=== PATIENT | male | born 1950 | race Caucasian/White ===

== ENCOUNTER 2017-02-26 12:52 | Outpatient (RCR) | payer MEDICARE, OTHER ==
[~2017-02-26 12:52] MED LIST: AMOX500T10 PO; BUTA1TAB14 PO; LEVO-3 PO; LOSA25TA50 PO; SIMV-49 PO
[2017-02-26 13:19] LABS: PLATELET COUNT, AUTOMATED 246 K/uL (150-450)
[2017-02-26 13:31] LABS: INR 2.25
[2017-02-27] MEDS ORDERED: BARIUM SULFATE 176 GM BTL PO ONE (11:14)
[2017-02-27] MEDS ORDERED: BARIUM SULFATE 340 GM POWD ONE (11:14)
--- NOTE | 2017-02-27 17:16 | RADIOLOGY IMAGING REPORT ---
FACILITY: [facility] [place] PATIENT NAME: Ty Dozier : 1950 MR: [id number] V: [id number] EXAM DATE: ORDERING PHYSICIAN: BRITTANI HUFFMAN TECHNOLOGIST: Location: [facility] [place] Patient: Ty Dozier : 1950 Visit/Account:[id number] Date of Sevice: 02/27/2017 Exam type: UPPER GI SERIES W/O AIR History: GERD Comparison: None. Findings: Double contrast upper GI series was performed with thick and thin barium. The patient had a small hi atal hernia with a large amount of gastroesophageal reflux. No significant narrowing was identified within the esophagus. No mucosal erosions were seen. No other abnormality of the stomach duodenal b ulb or duodenal C-loop was identified the fluoroscopy dose area product was 1196.35 micro-Mercedes per me ter squared IMPRESSION: 1. Small hiatal hernia with a large amount of gastroesophageal reflux although no significant narrow ing of the esophagus or mucosal erosion identified Report Dictated By: Lena Griffith MD at 02/27/2017 5:09 PM Report E-Signed By: Lena Griffith MD at 02/27/2017 5:11 PM WSN:[id number]
== END 2017-02-27 18:00 | disposition home or self-care (01) ==
LOC: RAD 12:52
PROVIDERS: ATTEND Family Medicine
DX: K21.9 Gastro-esophageal reflux disease without esophagitis (principal); I67.6 Nonpyogenic thrombosis of intracranial venous system; Z79.01 Long term (current) use of anticoagulants; K44.9 Diaphragmatic hernia without obstruction or gangrene; D64.9 Anemia, unspecified
CPT/HCPCS: 36415; 74240; 83540; 85025; 85045; 85610

== ENCOUNTER → 2017-04-30 | Outpatient (CLI) | payer MEDICARE, OTHER ==
[2017-04-30 12:15] LABS: LDL CHOLESTEROL 117 mg/dl
== END ==
LOC: LAB 10:35
PROVIDERS: ATTEND Family Medicine
DX: E78.5 Hyperlipidemia, unspecified (principal); E03.9 Hypothyroidism, unspecified; E11.9 Type 2 diabetes mellitus without complications
CPT/HCPCS: 36415; 82040; 82247; 82310; 82374; 82435; 82465; 82565; 82947; 83036; 83718; 84075; 84132; 84155; 84295; 84443; 84450; 84460; 84478; 84520

== ENCOUNTER → 2017-11-08 | Outpatient (CLI) | payer MEDICARE, OTHER ==
[~2017-11-08] MED LIST changes: -LOSA25TA50 PO; +LOSA25TA52 PO
[2017-11-08 10:02] LABS: LDL CHOLESTEROL 104 mg/dl
== END ==
LOC: LAB 09:04
PROVIDERS: ATTEND Family Medicine
DX: E78.5 Hyperlipidemia, unspecified (principal); E03.9 Hypothyroidism, unspecified; E11.9 Type 2 diabetes mellitus without complications
CPT/HCPCS: 36415; 82040; 82247; 82310; 82374; 82435; 82465; 82565; 82947; 83036; 83718; 84075; 84132; 84155; 84295; 84443; 84450; 84460; 84478; 84520

== ENCOUNTER → 2018-05-15 | Outpatient (CLI) | payer MEDICARE, OTHER ==
[~2018-05-15] MED LIST changes: -LOSA25TA52 PO; +LOSA25TA57 PO
[2018-05-15 09:24] LABS: LDL CHOLESTEROL 85 mg/dl
== END ==
LOC: LAB 08:28
PROVIDERS: ATTEND Family Medicine
DX: E03.9 Hypothyroidism, unspecified (principal); E11.9 Type 2 diabetes mellitus without complications; I10 Essential (primary) hypertension
CPT/HCPCS: 36415; 82040; 82247; 82310; 82374; 82435; 82465; 82565; 82947; 83718; 84075; 84132; 84155; 84295; 84443; 84450; 84460; 84478; 84520